=== PATIENT | female | born 1940 | race Caucasian/White ===

== ENCOUNTER → 2017-09-21 | Outpatient (CLI) | payer BC | END | disposition home or self-care (01) | LOC: MRI 10:13 → RAD 11:00 | DX: G93.89 Other specified disorders of brain (principal); I61.1 Nontraumatic intracerebral hemorrhage in hemisphere, cortical | CPT/HCPCS: 70553 ==

== ENCOUNTER 2017-12-30 13:24 | Emergency (ER) | payer BC ==
[~2017-12-30] VITALS: Ht 167.6 cm; Wt 93.2 kg
[2017-12-30] MEDS ORDERED: LOSARTAN POTASS25 MG PO (13:39)
[2017-12-30] MEDS ORDERED: COMPAZINE10 MG PO (13:39)
[2017-12-30] MEDS ORDERED: ONDANSETRON HCL4 MG PO (13:40)
[2017-12-30] MEDS ORDERED: ATORVASTATIN CA40 MG PO (13:40)
[2017-12-30] MEDS ORDERED: ELIQUIS5 MG PO (13:41)
[2017-12-30] MEDS ORDERED: TEMOZOLOMIDE100 MG PO (13:42)
[2017-12-30 15:58] LABS: HEMATOCRIT 37.1 % (36.0-46.0); PLATELET COUNT 169 K/uL (156-360); RBC DIS.WIDTH-CV 12.6 % (11.8-14.6); RBC DIS.WIDTH-SD 45.2 % (39-53); RED BLOOD COUNT 3.82 M/uL (3.80-5.20); WHITE BLOOD COUNT 6.1 K/uL (4.1-10.2)
[2017-12-30 16:01] LABS: MCV 97.1 FL (83-99)
[2017-12-30 16:02] LABS: APPEARANCE SL.HAZY ((CLEAR)); BILIRUBIN NEGATIVE; BLOOD MODERATE; COLOR YELLOW ((YELLOW)); GLUCOSE (STRIP) NEGATIVE; KETONES NEGATIVE; LEUKOCYTES TRACE; NITRITE NEGATIVE; PROTEIN (STRIP) 30; SPECIFIC GRAVITY 1.018 (1.000-1.030); UROBILINOGEN 0.2 MG/DL (0.2-1.0)
[2017-12-30 16:05] LABS: BACTERIA RARE /HPF; EPITHELIAL CELLS 1+ /HPF; MUCUS TRACE /LPF; RED BLOOD CELLS TNTC /HPF (0-5)
[2017-12-30 16:12] LABS: ALBUMIN 3.7 g/dL (3.2-4.8); CHLORIDE 106 mEq/L (99-109); POTASSIUM 3.5 mEq/L (3.7-5.4); SODIUM 139 mEq/L (136-147)
[2017-12-30 16:14] LABS: GLUCOSE 219 mg/dL (70-99); TOTAL PROTEIN 5.9 g/dL (6.4-8.3)
[2017-12-30 16:16] LABS: TOTAL BILIRUBIN 0.7 mg/dL (0.0-1.0)
[2017-12-30 16:18] LABS: ALKALINE PHOSPHATASE 66 IU/L (3-129); CREATININE 0.7 mg/dL (0.6-1.3); GFR ESTIMATE (CALCULATED) > 59 mL/min/
[2017-12-30 16:19] LABS: UREA NITROGEN (BUN) 15 mg/dL (9-23)
[2017-12-30 16:20] LABS: AST (GOT) 29 IU/L (2-34)
[2017-12-30 16:21] LABS: ALT (GPT) 40 IU/L (3-49)
[2017-12-30] MEDS ORDERED: KEFLEX500 MG PO (18:43)
[2017-12-30 18:51] VITALS: BP 121/81
== END 2017-12-30 18:52 | disposition home or self-care (01) ==
LOC: EME 13:24
PROVIDERS: Emergency Medicine
DX: N39.0 Urinary tract infection, site not specified (principal); R53.1 Weakness; C71.9 Malignant neoplasm of brain, unspecified; E78.5 Hyperlipidemia, unspecified; I10 Essential (primary) hypertension; Z86.73 Personal history of transient ischemic attack (TIA), and cerebral infarction without residual deficits; Z87.891 Personal history of nicotine dependence
CPT/HCPCS: 70450; 71045; 80053; 81003; 83605; 85027; 87086; 99281; 99285; J0696; J7030

== ENCOUNTER 2018-01-02 09:54 | Inpatient (IN) | payer BC ==
[~2018-01-02] VITALS: Ht 170.2 cm; Wt 93.1 kg
[~2018-01-02 09:54] MED LIST: ATORVASTATIN CA40 MG PO; COMPAZINE10 MG PO; ELIQUIS5 MG PO; KEFLEX500 MG PO; LOSARTAN POTASS25 MG PO; ONDANSETRON HCL4 MG PO; TEMOZOLOMIDE100 MG PO
[2018-01-02 10:20] LABS: BASOPHIL (%) 0.5 % (0-1); EOSINOPHIL (%) 3.3 % (0-5); EOSINOPHIL COUNT 0.2 K/uL (0-0.3); HEMATOCRIT 37.3 % (36.0-46.0); HEMOGLOBIN 12.9 G/DL (11.9-15.5); IMMATURE GRANULOCYTE (%) 0.3 % (0.0-0.7); LYMPHOCYTE (%) 12.3 % (15-42); LYMPHOCYTE COUNT 0.8 K/uL (1.0-2.8); MCH 33.9 PG (29.0-34.0); MCHC 34.6 G/DL (30.0-36.0); MCV 98.2 FL (83-99); MONOCYTE (%) 7.2 % (3-12); MONOCYTE COUNT 0.5 K/uL (0-0.8); NEUTROPHIL (%) 76.4 % (45-76); NEUTROPHIL COUNT 4.9 K/uL (1.8-6.4); PLATELET COUNT 157 K/uL (156-360); RBC DIS.WIDTH-CV 12.6 % (11.8-14.6); RBC DIS.WIDTH-SD 45.1 % (39-53); WHITE BLOOD COUNT 6.4 K/uL (4.1-10.2)
[2018-01-02 10:29] LABS: ALBUMIN 3.7 g/dL (3.2-4.8); CHLORIDE 107 mEq/L (99-109); POTASSIUM 3.6 mEq/L (3.7-5.4); SODIUM 142 mEq/L (136-147)
[2018-01-02 10:31] LABS: GLUCOSE 177 mg/dL (70-99)
[2018-01-02 10:33] LABS: TOTAL BILIRUBIN 0.8 mg/dL (0.0-1.0)
[2018-01-02 10:35] LABS: ALKALINE PHOSPHATASE 65 IU/L (3-129); CREATININE 0.7 mg/dL (0.6-1.3); GFR ESTIMATE (CALCULATED) > 59 mL/min/
[2018-01-02 10:36] LABS: UREA NITROGEN (BUN) 15 mg/dL (9-23)
[2018-01-02 10:37] LABS: AST (GOT) 32 IU/L (2-34)
[2018-01-02 10:38] LABS: ALT (GPT) 38 IU/L (3-49)
[2018-01-02 11:32] LABS: APPEARANCE SL.HAZY ((CLEAR)); BILIRUBIN NEGATIVE; BLOOD SMALL; COLOR YELLOW ((YELLOW)); GLUCOSE (STRIP) NEGATIVE; KETONES NEGATIVE; LEUKOCYTES NEGATIVE; NITRITE NEGATIVE; PROTEIN (STRIP) 30; SPECIFIC GRAVITY 1.014 (1.000-1.030); UROBILINOGEN 0.2 MG/DL (0.2-1.0)
[2018-01-02 11:40] LABS: BACTERIA RARE /HPF; EPITHELIAL CELLS 1+ /HPF; MUCUS TRACE /LPF; WHITE BLOOD CELLS 0-5 /HPF (0-5)
[2018-01-02] MEDS ORDERED: GLIPIZIDE5 MG PO (14:35)
[2018-01-02] MEDS ORDERED: LEVETIRACETAM500 MG PO (14:35)
[2018-01-02] MEDS ORDERED: COMPAZINE10 MG PO (14:36)
[2018-01-02] MEDS ORDERED: FISH OIL 1,2001 EAC4 PO (14:38)
[2018-01-02] MEDS ORDERED: FIBER THERAPY0.52 GM PO ×2 (14:38→14:39)
[2018-01-02] MEDS ORDERED: HYDROCHLOROTHIA25 MG PO (17:03)
[2018-01-02 19:56] VITALS: BP 143/70
[2018-01-03 00:27] VITALS: BP 124/86
[2018-01-03 03:33] VITALS: BP 143/70
[2018-01-03 06:34] LABS: HEMATOCRIT 35.3 % (36.0-46.0); HEMOGLOBIN 12.3 G/DL (11.9-15.5); MCHC 34.8 G/DL (30.0-36.0); MCV 97.5 FL (83-99); PLATELET COUNT 151 K/uL (156-360); RBC DIS.WIDTH-CV 12.6 % (11.8-14.6); RBC DIS.WIDTH-SD 44.4 % (39-53); RED BLOOD COUNT 3.62 M/uL (3.80-5.20); WHITE BLOOD COUNT 5.7 K/uL (4.1-10.2)
[2018-01-03 06:59] LABS: CHLORIDE 110 MEQ/L (99-109); CREATININE 0.4 MG/DL (0.6-1.3); GFR ESTIMATE (CALCULATED) > 59 mL/min/; GLUCOSE 151 mg/dL (70-99); POTASSIUM 3.8 MEQ/L (3.7-5.4); SODIUM 142 MEQ/L (136-147); UREA NITROGEN (BUN) 10 mg/dL (9-23)
[2018-01-03 07:37] VITALS: BP 125/68
[2018-01-03 23:56] VITALS: BP 133/70
[2018-01-04 06:09] LABS: BASOPHIL (%) 0.2 % (0-1); EOSINOPHIL (%) 0 % (0-5); HEMATOCRIT 35.4 % (36.0-46.0); HEMOGLOBIN 12.4 G/DL (11.9-15.5); IMMATURE GRANULOCYTE (%) 0.5 % (0.0-0.7); LYMPHOCYTE (%) 11.5 % (15-42); LYMPHOCYTE COUNT 0.7 K/uL (1.0-2.8); MCH 34.3 PG (29.0-34.0); MCV 97.8 FL (83-99); MONOCYTE (%) 4.7 % (3-12); MONOCYTE COUNT 0.3 K/uL (0-0.8); NEUTROPHIL (%) 83.1 % (45-76); PLATELET COUNT 153 K/uL (156-360); RBC DIS.WIDTH-CV 12.5 % (11.8-14.6); RED BLOOD COUNT 3.62 M/uL (3.80-5.20)
[2018-01-04 06:43] LABS: ALBUMIN 3.4 G/DL (3.2-4.8); ALKALINE PHOSPHATASE 54 IU/L (3-129); ALT (GPT) 23 IU/L (3-49); AST (GOT) 14 IU/L (2-34); CHLORIDE 113 MEQ/L (99-109); CREATININE 0.5 MG/DL (0.6-1.3); GFR ESTIMATE (CALCULATED) > 59 mL/min/; GLUCOSE 202 mg/dL (70-99); POTASSIUM 3.9 MEQ/L (3.7-5.4); SODIUM 146 MEQ/L (136-147); TOTAL BILIRUBIN 0.5 MG/DL (0.0-1.0); TOTAL PROTEIN 5.4 G/DL (6.4-8.3); UREA NITROGEN (BUN) 14 mg/dL (9-23)
[2018-01-04 08:00] VITALS: BP 133/72
[2018-01-04 15:37] VITALS: BP 132/68
[2018-01-04 23:36] VITALS: BP 132/66
[2018-01-05 07:37] VITALS: BP 117/68
[2018-01-05 16:07] VITALS: BP 109/70
[2018-01-05 22:40] VITALS: BP 120/69
[2018-01-06 07:15] VITALS: BP 125/70
[2018-01-06] MEDS ORDERED: BENADRYL25 MG PO (15:43)
[2018-01-06] MEDS ORDERED: DEXAMETHASONE4 MG PO (15:48)
== END 2018-01-06 18:49 | DRG 54 ==
LOC: EME 09:54 → 5EAST 14:04 → ENRESERV 14:04 → EDOF 14:04 → ENRESERV 15:41 → 5EAST 16:25
PROVIDERS: Emergency Medicine; Hospitalist; Internal Medicine; Physician Assistant
DX: C71.9 Malignant neoplasm of brain, unspecified (principal); G45.9 Transient cerebral ischemic attack, unspecified; N39.0 Urinary tract infection, site not specified; I48.91 Unspecified atrial fibrillation; G93.6 Cerebral edema; I10 Essential (primary) hypertension; E78.5 Hyperlipidemia, unspecified; E11.9 Type 2 diabetes mellitus without complications; K59.00 Constipation, unspecified; E66.9 Obesity, unspecified; G40.909 Epilepsy, unspecified, not intractable, without status epilepticus; Z66 Do not resuscitate; Z79.01 Long term (current) use of anticoagulants; Z86.73 Personal history of transient ischemic attack (TIA), and cerebral infarction without residual deficits; Z68.32 Body mass index [BMI] 32.0-32.9, adult; Z85.841 Personal history of malignant neoplasm of brain; Z79.899 Other long term (current) drug therapy; Z79.84 Long term (current) use of oral hypoglycemic drugs; Z92.3 Personal history of irradiation
CPT/HCPCS: 70450; 70553; 71045; 72040; 80048; 80053; 81003; 82948; 83605; 85025; 85027; 87086; 93005; 97530 GO; 97530 GP; 99281; 99285; J0696; J1815; J7030; J8540